=== PATIENT | female | born 1990 | race African-American/Black ===

== ENCOUNTER 2025-02-20 12:43 | Emergency (ER) | payer OTHER, SELFPAY ==
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
[2025-02-20 13:15] VITALS: BP 136/89; PULSE 81; RESP 20; TEMP 37; O2SAT 98; BMI 29.4
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
[2025-02-20 14:36] VITALS: BP 136/89; PULSE 81; RESP 20; TEMP 37; O2SAT 98
--- OUTSIDE RECORDS SUMMARY | 2025-02-20 16:52 | XMS_ITS | Clinical Summary ---
Author Organization [facility] Address [address] [place] [phone] Phone Care Team Providers Care Technical Services Analyst Name Role Phone Jean-Pierre Peter MD Primary Care Provider Allergies No known active allergies Medications ketoconazole (NIZORAL) 2 % shampoo Apply to affected area of damp skin, lather, leave on 5 minutes, and rinse. Do this daily for up to 2 weeks. 07/27/2023 Active Active Problems Problem Noted Date Diagnosed Date Elevated prolactin level 07/28/2023 Overview (11/12/2024): 07/28/2023 38.5 - repeat lab ordered if remains elevated will refer to endocrine Immunizations Name Administration Dates Next Due DTaP (Infanrix) 6wks to less than 7yo 03/08/1996 ,08/11/1992 DTaP / Hib 1991,1991,1991 [id number] (Pentacel) 2mo to less than 5yo 05/08/1992 HPV, Quadrivalent 04/02/2008,11/29/2007,03/30/20 07 Hepatitis B Pediatric (Enger ix B; Recombivax HB) to less than 20 yo 08/22/1996,04/19/1996,03/08/1996 IPV Inactivated polio (Ipol) 6wks and older 03/08/1996,08/11/1992,1991,08/10,1991 Influenza trivalent, 0.5mL, preservative free (Fluarix; FluLaval; Fluzone) ages 6mo and older (Afluria) 3 years and older 09/25/2014 MMR, measles mumps and rubel la Live (Priorix; M-M-R II) 12mo and older 03/08/1996,05/08/1992 Meningococcal MCV4P 07/28/2009 Tdap Tetanus diptheria acell ular pertussis (Boostrix; Adacel) 7yo and older 12/26/2022,07/28/2009,03/13/2003 Surgical History Surgery Date Site/Laterality Comments OTHER SURGICAL HISTORY PROCEDURE: DENIES PREVIOUS SURGERY Family History Medical History Relation Name Comments Hypertension Mother's side 1 diabetes Diabetes Paternal Grandmother Esophageal cancer Paternal Grandmother Breast cancer Neg Hx Colon cancer Neg Hx Coronary artery disease Neg Hx Ovarian cancer Neg Hx Relation Name Status Comments Mother's side 1 Mother's side 2 Paternal Grandmother Social History Tobacco Use Types Packs/Day Years Used Date Smoking Tobacco: Never Smokeless Tobacco: Never Alcohol Use Standard Drinks/Week Comments Not Currently 0 (1 standard drink = 0.6 oz pur e alcohol) Comments Unknown Sex and Gender Information Value Date Recorded Sex Assigned at Not on file Legal Sex Female 9:26 AM EST Gender Identity Not on file Sexual Orientation Not on file Obstetrics History Last Filed Vital Signs Vital Sign Reading Time Taken Comments Blood Pressure 133/88 12/18/2023 10:46 AM EST Pulse 63 12/18/2023 10:46 AM EST Temperature - - Respiratory Rate - - Oxygen Saturation - - Inhaled Oxygen Concentration - - Weight 84.8 kg (187 lb) 12/18/2023 10:46 AM EST Height 175.3 cm (5' 9 ) 12/18/2023 10:46 AM EST Body Mass Index 27.62 12/18/2023 10:46 AM EST Plan of Treatment Health Maintenance Due Date Last Done Comments Depression Screening 10/16/2022 Social Influencers of Health Screening 10/16/2022 COVID-19 Vaccine ( season) 2024 02/16/2021, 01/19/2021 Influenza Vaccine (Season Ended) 2025 09/25/2014, 09/25/2014 Cervical Cancer Screening: HPV 07/27/2028 07/27/2023 Cholesterol Screening (Lipid Panel) 07/27/2028 07/27/2023 DTaP,Tdap,and Td Vaccines (10 - Td or Tdap) 12/26/2032 12/26/2022, 06/03/2019, 07/28/2009, Additional history exists HIB Vaccines Completed 05/08/1992, 01/1992, 1991, Additional history exists IPV Vaccines Completed 03/08/1996, 04/1992, 05/08/1992, Additional history exists MMR Vaccines Completed 03/08/1996, 05/08/1992 Hepatitis B Vaccines Completed 08/22/1996, 04/19/1996, 03/08/1996 HPV Vaccines Completed 04/02/2008, 11/07, 03/30/2007 Meningococcal ACWY Vaccine Completed 07/28/2009 HIV Screening Completed 07/27/2023 Hepatitis C Screening Completed 07/27/2023 Hepatitis A Vaccines Aged Out No long er eligible based on patient's age to complete this topic Meningococcal B Vaccine Aged Out No l onger eligible based on patient's age to complete this topic Pneumococcal Vaccine: Pediatrics (0 to 5 Years) and At-Risk Patients (6 to 64 Years) Aged Out No longer eligible based on patient's age to complete this topic RSV Immunization Patients Under 20 months Aged Out No longer eligible based on patient's age to complete this topic Varicella Vaccines Aged Out No longer eligible based on patient's age to complete this topic Procedures Procedure Name Priority Date/Time Associated Diagnosis Comments HPV Routine 07/27/2023 HEPATITIS C SCREENING Routine 07/27/2023 HIV SCREENING Routine 07/27/2023 LIPID PANEL Routine 07/27/2023 from Last 3 Months or Most Recently Relevant to Health Maintenance Results * Cervical Cancer Screening: HPV (07/27/2023) Pathologist [facility] Cervical Cancer Screening: HPV Negative, Abstracted [facility] Provider HEALTH MAINTENANCE Final Result * HIV Screening (07/27/2023) Pathologist [facility] HIV Screening Abstracted [facility] Provider HEALTH MAINTENANCE Final Result * Hepatitis C Screening (07/27/2023) Pathologist [facility] Hepatitis C Screening Abstracted [facility] Provider HEALTH MAINTENANCE Final Result * Lipid panel (07/27/2023) [facility] LDL/HDL Ratio 2 0 - 4 Triglycerides 49 0 - 150 mg/dL Cholesterol 150 0 - 200 mg/dL HDL 70 >=40 mg/dL LDL Cholesterol 71 0 - 100 mg/dL Blood Venous blood specimen / Unknown Result [facility] Provider LAB BLOOD ORDERABLES Malena l Result from Last 3 Months or Most Recently Relevant to Health Maintenance Insurance [facility] [employer] Care Teams Technical Services Analyst Relationship Specialty Start Date End Date Jean-Pierre Peter MD [address] [place] [address] PCP - General Internal Medicine 02/15/22
== END 2025-02-20 14:36 | disposition home or self-care (01) ==
PROVIDERS: Emergency Provider Emergency Medicine
DX: S13.4XXA Sprain of ligaments of cervical spine, initial encounter (principal); S39.012A Strain of muscle, fascia and tendon of lower back, initial encounter; V42.6XXA Car passenger injured in collision with two- or three-wheeled motor vehicle in traffic accident, initial encounter; Y93.89 Activity, other specified; Y92.414 Local residential or business street as the place of occurrence of the external cause; Y99.9 Unspecified external cause status
CPT/HCPCS: 72100; 99282; 99283

== ENCOUNTER → 2025-02-20 13:18 | Outpatient (BNV) | payer OTHER, SELFPAY | PROVIDERS: Emergency Provider Emergency Medicine; Visit Provider Radiology Diagnostic Radiology | DX: M54.50 Low back pain, unspecified (principal) | CPT/HCPCS: 72100 ==